=== PATIENT | female | born 1950 | race Caucasian/White ===

== ENCOUNTER 2016-09-10 13:41 | Emergency (ER) | payer MEDICARE ==
[2016-09-10 13:58] VITALS: BP 132/74
--- NOTE | 2016-09-10 14:58 | UC ---
UC General HPI - HPI Summary HPI Summary: complaint of wasp sting on her left hand that occurred 48 hours ago pain and swelling in hand that has increased took some benadryl and use soda paste on her hand without relief today redness and swelling has moved into her wrist denies fever and chills unsure of when her last tetanus immunization is - History of Current Complaint Chief Complaint: UCSkin Stated Complaint: BUG BITE Time Seen by Provider: 09/10/16 14:57 Hx Obtained From: Patient - Allergy/Home Medications Allergies/Adverse Reactions: Allergies Allergy/AdvReac Type Severity Reaction Status Date / Time Azithromycin [From Zithromax] Allergy Hives Verified 09/10/16 13:58 Levofloxacin [From Levaquin] Allergy Hives Verified 09/10/16 13:58 Penicillins Allergy Hives Verified 09/10/16 13:58 Home Medications: Home Medications Ascorbic Acid TAB* [Vitamin C TAB*] 500 mg PO DAILY 09/10/16 [History Confirmed 09/10/16] Cholecalciferol [Vitamin D] 1,000 units PO DAILY 09/10/16 [History Confirmed 07/23] Cranberry (Vaccinium Macrocarp [Cranberry] 500 mg PO DAILY 09/10/16 [History Confirmed 09/10/16] Rosuvastatin Calcium [Crestor] 20 mg PO DAILY 09/10/16 [History Confirmed ] PMH/Surg Hx/FS Hx/Imm Hx Previously Healthy: Yes Endocrine History: Dyslipidemia GI/ History: Gastroesophageal Reflux - Surgical History Surgical History: Yes Surgery Procedure, Year, and Place: T &A. Left breast biopsy - Family History Known Family History: Negative: Cardiac Disease, Hypertension, Diabetes - Social History Occupation: Employed Full-time Lives: With Family Alcohol Use: Daily Alcohol Amount: 2 glassesof wine daily Substance Use Type: None Smoking Status (MU): Never Smoked Tobacco Have You Smoked in the Last Year: No Review of Systems Constitutional: Negative Skin: Rash Eyes: Negative ENT: Negative Respiratory: Negative Cardiovascular: Negative Gastrointestinal: Negative Genitourinary: Negative Motor: Negative Neurovascular: Negative Musculoskeletal: Negative Neurological: Negative Psychological: Negative All Other Systems Reviewed And Are Negative: Yes Physical Exam Triage Information Reviewed: Yes Appearance: No Pain Distress, Well-Nourished Vital Signs: Initial Vital Signs Temp 98.8 F 09/10/16 13:54 Pulse 88 09/10/16 13:54 Resp 19 09/10/16 13:54 BP 132/74 09/10/16 13:54 Pulse Ox 100 09/10/16 13:54 Vital Signs Reviewed: Yes Eyes: Positive: Conjunctiva Clear ENT: Positive: Pharynx normal, TMs normal Neck: Positive: No Lymphadenopathy Respiratory: Positive: Lungs clear, Normal breath sounds, No respiratory distress, No accessory muscle use Cardiovascular: Positive: RRR, No Murmur, Pulses Normal, Brisk Capillary Refill Abdomen Description: Positive: Nontender, Soft Bowel Sounds: Positive: Present Musculoskeletal: Positive: No Edema Neurological: Positive: Alert Psychological Exam: Normal Skin: Positive: Other - left hand - area of edema and erythemaon back of hand that extends into her wrist Course/Dx - Course Course Of Treatment: will treat for cellulitis and update tetanus- pt has taken kelfex in the past so will rx again - Differential Dx - Multi-Symptom Provider Diagnoses: left hand cellulitis- insect bite Discharge - Discharge Plan Condition: Stable Disposition: HOME Prescriptions: Cephalexin CAP* [Keflex CAP*] 500 mg PO QID #28 cap Patient Education Materials: Cellulitis (ED) Referrals: No Primary Care Phys,NOPCP [Primary Care Provider] - [facility] [place] [facility] REFERRAL [Outside] Additional Instructions: CELLULITIS What is Cellulitis? Cellulitis is a bacterial infection of the skin and, sometimes, of the tissues beneath the skin. The skin normally has many types of bacteria on it, but intact skin is an effective barrier that keeps bacteria from entering and growing within the body. When there is a break in the skin, bacteria can enter the body and grow there, causing infection. The infection usually affects outer layers of the skin first, and then spreads deeper into body tissues. Cellulitis can affect any area of the body covered by skin, but it is most common on the face or lower part of the legs. Symptoms Might Include: Skin redness that increases in size as the infection spreads Tight, glossy, "stretched" appearance of the skin Pain or tenderness of the area The affected area may be warm or hot to the touch A thin red line (along a vein) from the cellulitis toward the heart Fever Chills, shaking Muscle aches pains Joint stiffness because of swelling around a joint Treatment Recommendations: The healthcare provider may have prescribed an antibiotic medicine. The medicine should be taken until it is completely gone, even if you are feeling better. If you stop taking the medicine early, the infection may not be completely gone, and the medication may not work the next time. If the infection is on your arm or leg, keep it elevated. You may use warm, wet compresses to relieve the pain and help healing. Soak a clean cloth in warm water, wring it out a little, and apply it to the affected site. Leave the soak in place for 15 minutes and repeat often throughout the day. Rest until the fever is gone and the pain and redness have lessened. You may take ibuprofen (Motrin, Advil), or acetaminophen (Tylenol) for pain. These will help ease some of the symptoms but will not cure the infection. Call Your Doctor or Return Here IF: Your fever does not go down with treatment, or it increases to more than 101 F. You are not starting to get better with the treatment within 24 to 36 hours. You have increasing pain, swelling, or chills. You feel drowsy and lethargic, or you have vomiting or diarrhea. You find the redness is spreading or there are red streaks coming from the infected area. The joint or bone under the infected skin becomes painful after the skin has started to heal. You have any new symptoms that worry you.
[2016-09-10] MEDS ORDERED: Tetan/Diph/Pertus SYR(Tdap)* 0.5 ML SYR(BOOSTRIX) use SYR IM ONE (15:05)
== END 2016-09-10 15:22 | disposition home or self-care (01) ==
LOC: UCEAST 13:41
DX: S60.562A Insect bite (nonvenomous) of left hand, initial encounter (principal); L03.114 Cellulitis of left upper limb; Z23 Encounter for immunization
CPT/HCPCS: 90471; 90715; 99212; G0463

== ENCOUNTER 2016-10-10 08:06 | Emergency (ER) | payer MEDICARE ==
--- NOTE | 2016-10-10 10:01 | UC ---
Naeem Nair Benjamin, scribed for Tanika Coronel MD on 10/10/16 at 0910 . Skin Complaint HPI - HPI Summary HPI Summary: 66 yo female c/o sting with wasp to L cheek Thursday. Has been taking benadryl , last dose last night. No sob / cp / palpitations. No fever / chills. She is concerned that she just recently (early September) was stung by a yellow jacket. Developed secondary cellulitis at the time, took cephalexin, which helped. - History of Current Complaint Chief Complaint: UCSkin Stated Complaint: WASP STING-JUST RED AND SORE Hx Obtained From: Patient - Allergy/Home Medications Allergies/Adverse Reactions: Allergies Allergy/AdvReac Type Severity Reaction Status Date / Time Azithromycin [From Zithromax] Allergy Hives Verified 10/10/16 08:22 Levofloxacin [From Levaquin] Allergy Hives Verified 10/10/16 08:22 Penicillins Allergy Hives Verified 10/10/16 08:22 Home Medications: Home Medications diPHENhydraMINE PO* [Benadryl PO 25 MG TAB*] 1 tab PO 10/10/16 [History] Review of Systems Constitutional: Other - SEE HPI Skin: Rash Eyes: Negative ENT: Negative Respiratory: Negative Cardiovascular: Negative Gastrointestinal: Negative Genitourinary: Negative Motor: Negative Neurovascular: Negative Musculoskeletal: Negative Neurological: Negative Psychological: Negative All Other Systems Reviewed And Are Negative: Yes PMH/Surg Hx/FS Hx/Imm Hx Previously Healthy: Yes - but see hpi. + allergic hx Cardiovascular History: Hypertension - Surgical History Surgical History: Yes Surgery Procedure, Year, and Place: T & A. Left breast biopsy - Family History Known Family History: Negative: Cardiac Disease, Hypertension, Diabetes - Social History Occupation: Employed Full-time Lives: With Family Alcohol Use: Daily Alcohol Amount: 2 glasses of wine daily Substance Use Type: None Smoking Status (MU): Never Smoked Tobacco Have You Smoked in the Last Year: No Physical Exam Triage Information Reviewed: Yes Appearance: Well-Nourished Vital Signs: Initial Vital Signs Temp 98.4 F 10/10/16 08:23 Pulse 72 10/10/16 08:23 Resp 16 10/10/16 08:23 BP 114/73 10/10/16 08:23 Pulse Ox 100 10/10/16 08:23 Vital Signs Reviewed: Yes Eye Exam: Normal ENT Exam: Other - L cheek with redness, swelling approx 5 x 6 cm. No loretta purulence, no stinger noted. Oropharynx o/w benign. Neck exam: Normal Respiratory Exam: Normal Respiratory: Positive: Normal breath sounds - No tachypnea, no dyspnea, No respiratory distress Cardiovascular Exam: Normal Cardiovascular: Positive: RRR, Pulses Normal, Brisk Capillary Refill Abdomen Description: Positive: Nontender, No Organomegaly, Soft Bowel Sounds: Positive: Present Musculoskeletal Exam: Normal Neurological Exam: Normal Psychological Exam: Normal Skin Exam: Normal Skin: Negative: rashes Course/Dx - Course Course Of Treatment: Reviewed pt's medications list and allergies. Blood pressure noted. Being tx'd. Will f/u with PCP in upon her return home. Plans to f/u with signal manager in December will call for report. Rx prednisone taper, cont benadryl (d/w pt). Rx cephalexin, if worse redness or fever. Ms. Garcia seems pleased with coa / tx plan. Questions answered to the best of my ability. - Diagnoses Provider Diagnoses: Hymenoptera sting Discharge - Discharge Plan Condition: Stable Disposition: HOME Prescriptions: Cephalexin CAP* [Keflex 500 CAP*] 500 mg PO TID #21 cap predniSONE TAB* [Deltasone TAB*] 10 mg PO DAILY #20 tab Patient Education Materials: Insect Bite or Sting (ED) Referrals: No Primary Care Phys,NOPCP [Primary Care Provider] - Additional Instructions: Please follow up with your primary care provider upon your return home. Seek medical attention for worse or new problems in the meantime. The documentation as recorded by the Naeem ace Benjamin accurately reflects the service I personally performed and the decisions made by me, Tanika Coronel MD.
[2016-10-10 10:22] VITALS: BP 128/86
== END 2016-10-10 10:17 | disposition home or self-care (01) ==
LOC: UCEAST 08:06
DX: T63.441A Toxic effect of venom of bees, accidental (unintentional), initial encounter (principal); Y92.9 Unspecified place or not applicable; I10 Essential (primary) hypertension; Z88.1 Allergy status to other antibiotic agents
CPT/HCPCS: 99212; G0463

== ENCOUNTER 2016-11-18 08:21 | Emergency (ER) | payer MEDICARE ==
[2016-11-18] MEDS ORDERED: Ondansetron ODT TAB* 4 MG PO ONE (08:50)
[2016-11-18] MEDS ORDERED: Ketorolac INJ* 30 MG/ML 1 ML VIAL IV ONE (08:50)
[2016-11-18] MEDS ORDERED: NS 0.9% 1000 ML* 1,000 ML IV ONE (08:50)
[2016-11-18] MEDS ORDERED: Morphine INJ* 4 MG/ML 1 ML CARPUJECT IV ONE (08:50)
[2016-11-18 09:15] LABS: Hematocrit 39 % (35-47); Hemoglobin 12.8 g/dl (12.0-16.0); Mean Corpuscular HGB Conc 33 g/dl (31-36); Mean Corpuscular Hemoglobin 31 pg (27-31); Mean Corpuscular Volume 92 fL (80-97); Mean Platelet Volume 8 um3 (7.4-10.4); Red Blood Count 4.18 10^6/ul (4.0-5.4); Red Cell Distribution Width 14 % (10.5-15); White Blood Count 9.1 10^3/ul (3.5-10.8)
[2016-11-18 09:28] LABS: Albumin 4.1 g/dL (3.2-5.2); BUN/Creatinine Ratio 16.7 (8-20); Calcium 9.3 mg/dL (8.6-10.3); EGFR African American 94.5 (>60); EGFR Non-African American 73.4 (>60); Globulin 2.5 g/dL (2-4); Potassium 3.5 mmol/L (3.5-5.0); Total Bilirubin 0.6 mg/dL (0.2-1.0); Total Protein 6.6 g/dL (6.4-8.9)
--- NOTE | 2016-11-18 09:38 | RAD ---
Indication: Headaches, sinus congestion. CT of the brain was performed without IV contrast. Ventricular structures are midline. No midline shift is noted. The extra-axial spaces are unremarkable. There is no evidence of intracranial mass or hemorrhage. Prominent Virchow Aris space is noted in the right basal ganglia. No intracranial mass or hemorrhage is noted. Is noted in the right basal ganglia. Mastoid air cells are well aerated. There may be some ethmoid mucosal thickening noted. IMPRESSION: Likely prominent Virchow Aris space is noted in the right basal ganglia. No intracranial mass or hemorrhage is noted.
[2016-11-18] MEDS ORDERED: Ondansetron INJ* 2 MG/ML VIAL ONE (09:41)
[2016-11-18] MEDS ORDERED: Ondansetron INJ* 2 MG/ML VIAL IV ONE (09:41)
[2016-11-18 10:09] LABS: Erythrocyte Sed Rate 22 mm/Hr (0-40)
[2016-11-18 10:45] LABS: Urine Bacteria Absent (Absent); Urine Bilirubin Negative (Negative); Urine Glucose Negative (Negative); Urine Nitrite Negative (Negative)
[2016-11-18 11:25] VITALS: BP 123/83
--- NOTE | 2016-11-18 14:47 | ED ---
Alayna Nair Nilda, scribed for Iban Citnron MD on 11/18/16 at 0850 . Neck Pain - HPI Summary HPI Summary: Pt is a 66 y/o F who presents to ED c/o neck pain. Pain began last night and is currently moderate, ranked 7/10 and characterized as stiffness. Additionally c/ o fever (beginning last night), post nasal drip, clear rhinorrhea, nasal congestion, L-sided dental pain and mild sore throat. Symptoms began 5 days ago as the sore throat, which has improved since onset. Has been taking Tylenol and Sudafed for the last 24 hours. Sx aggravated by nothing, alleviated by medications. Denies vomiting, photophobia, rash and myalgias. PMHx sinus infections - last one was 2 years ago and typically without fever. Reports that she lives in the [facility] and has been doing a lot of gardening recently. Allergies to Azithromycin, Levofloxacin and Penicillins. - History of Current Complaint Chief Complaint: EDFever Stated Complaint: FEVER Time Seen by Provider: 11/18/16 08:38 Hx Obtained From: Patient Onset/Duration: Still Present Severity Currently: Moderate Pain Intensity: 7 Pain Scale Used: 0-10 Numeric Location: Discrete At: - Neck Character: Stiff Aggravating Factors: Nothing Alleviating Factors: OTC Meds - Tylenol and Sudafed Associated Signs & Symptoms: Positive: Fever - Allergies/Home Medications Allergies/Adverse Reactions: Allergies Allergy/AdvReac Type Severity Reaction Status Date / Time Azithromycin [From Zithromax] Allergy Hives Verified 11/18/16 08:34 Levofloxacin [From Levaquin] Allergy Hives Verified 11/18/16 08:34 Penicillins Allergy Hives Verified 11/18/16 08:34 PMH/Surg Hx/FS Hx/Imm Hx Endocrine/Hematology History: Denies: Hx Diabetes Cardiovascular History: Reports: Hx Hypercholesterolemia, Hx Hypertension GI History: Reports: Hx Gastroesophageal Reflux Disease - Surgical History Surgery Procedure, Year, and Place: T & A. Left breast biopsy Infectious Disease History: No Infectious Disease History: Denies: Hx Clostridium Difficile, Hx Hepatitis, Hx Human Immunodeficiency Virus (HIV), Hx of Known/Suspected MRSA, Hx Shingles, Hx Tuberculosis, Hx Known/ Suspected VRE, Hx Known/Suspected VRSA, History Other Infectious Disease, Traveled Outside the [place] in Last 30 Days - Family History Known Family History: Negative: Cardiac Disease, Hypertension, Diabetes - Social History Alcohol Use: Daily Alcohol Amount: 2 glasses of wine daily Substance Use Type: Reports: None Smoking Status (MU): Never Smoked Tobacco Have You Smoked in the Last Year: No Review of Systems Positive: Fever Negative: Photophobia Positive: Dental Pain - L-sided, Sore Throat - mild, Nasal Discharge, Other - Post-nasal drip, nasal congestion Negative: Vomiting Positive: Other - Neck pain. Negative: Myalgia Negative: Rash All Other Systems Reviewed And Are Negative: Yes Physical Exam - Summary Physical Exam Summary: The patient is well-nourished in no acute distress and in no acute pain. The skin is warm and dry and skin color reflects adequate perfusion. She has good skin turgor. HEENT: The head is normocephalic and atraumatic. The pupils are equal and reactive. The conjunctivae are clear and without drainage. Nares have boggy turbinates and rhinorrhea. Mouth reveals moist mucous membranes and the throat is erythematous without exudate. There is some post nasal drip in the back of the throat. The external ears are intact. The ear canals are patent and without drainage. The tympanic membranes are intact. Tenderness to percussion over the frontal sinuses. Neck is supple with full range of motion and non-tender. There are no carotid bruits. There is no nuchal rigidity. Respiratory: Chest is non-tender. Lungs are clear to auscultation and breath sounds are symmetrical and equal. Cardiovascular: Hear is regular rate and rhythm. There is no murmur or rub auscultated. There is no peripheral edema and pulses are symmetrical and equal. Abdomen: The abdomen is soft and non-tender. There are normal bowel sounds heard in all four quadrants and there is no organomegaly palpated. Musculoskeletal: There is no back pain noted. Extremities are non-tender with full range of motion. There is good capillary refill. There is no peripheral edema or calf tenderness elicited. Neurological: Patient is alert and oriented to person, place and time. The patient has symmetrical motor strength in all four extremities. Psychiatric: The patient has an appropriate affect and does not exhibit any anxiety or depression. Triage Information Reviewed: Yes Vital Signs On Initial Exam: Initial Vitals Temp Pulse Resp BP Pulse Ox 98.8 F 105 17 128/89 98 11/18/16 08:25 11/18/16 08:25 11/18/16 08:25 11/18/16 08:25 11/18/16 08:25 Vital Signs Reviewed: Yes - Cade Coma Scale Best Eye Response: 4 - Spontaneous Best Motor Response: 6 - Obeys Commands Best Verbal Response: 5 - Oriented Coma Scale Total: 15 Diagnostics - Vital Signs Vital Signs Temp Pulse Resp BP Pulse Ox 11/18/16 08:32 98 99 11/18/16 08:31 133/89 11/18/16 08:25 98.8 F 105 17 128/89 98 - Laboratory Lab Results: Lab Results 11/18/16 11/18/16 11/18/16 Range/Units 09:00 09:00 09:00 WBC 9.1 (3.5-10.8) 10^3/ul RBC 4.18 (4.0-5.4) 10^6/ul Hgb 12.8 (12.0-16.0) g/dl Hct 39 (35-47) % MCV 92 (80-97) fL MCH 31 (27-31) pg MCHC 33 (31-36) g/dl RDW 14 (10.5-15) % Plt Count 226 (150-450) 10^3/ul MPV 8 (7.4-10.4) um3 Neut % (Auto) 78.8 (38-83) % Lymph % (Auto) 11.9 L (25-47) % [place] % (Auto) 6.3 (1-9) % Eos % (Auto) 1.9 (0-6) % Baso % (Auto) 1.1 (0-2) % Absolute Neuts (auto) 7.2 (1.5-7.7) 10^3/ul Absolute Lymphs (auto) 1.1 (1.0-4.8) 10^3/ul Absolute Monos (auto) 0.6 (0-0.8) 10^3/ul Absolute Eos (auto) 0.2 (0-0.6) 10^3/ul Absolute Basos (auto) 0.1 (0-0.2) 10^3/ul Absolute Nucleated RBC 0 10^3/ul Nucleated RBC % 0 ESR 22 (0-40) mm/Hr Sodium 140 (133-145) mmol/L Potassium 3.5 (3.5-5.0) mmol/L Chloride 107 (101-111) mmol/L Carbon Dioxide 28 (22-32) mmol/L Anion Gap 5 (2-11) mmol/L BUN 13 (6-24) mg/dL Creatinine 0.78 (0.51-0.95) mg/dL Est GFR ( Amer) 94.5 (>60) Est GFR (Non-Af Amer) 73.4 (>60) BUN/Creatinine Ratio 16.7 (8-20) Glucose 108 H (70-100) mg/dL Lactic Acid 0.9 (0.5-2.0) mmol/L Calcium 9.3 (8.6-10.3) mg/dL Total Bilirubin 0.60 (0.2-1.0) mg/dL AST 22 (13-39) U/L ALT 21 (7-52) U/L Alkaline Phosphatase 62 (34-104) U/L Total Protein 6.6 (6.4-8.9) g/dL Albumin 4.1 (3.2-5.2) g/dL Globulin 2.5 (2-4) g/dL Albumin/Globulin Ratio 1.6 (1-3) Urine Color Urine Appearance Urine pH (5-9) Ur Specific [place] (1.010-1.030) Urine Protein (Negative) Urine Ketones (Negative) Urine Blood (Negative) Urine Nitrate (Negative) Urine Bilirubin (Negative) Urine Urobilinogen (Negative) Ur Leukocyte Esterase (Negative) Urine WBC (Auto) (Absent) Urine RBC (Auto) (Absent) Ur Squamous Epith Cells (Absent) Urine Bacteria (Absent) Urine Glucose (Negative) 11/18/16 Range/Units 10:13 WBC (3.5-10.8) 10^3/ul RBC (4.0-5.4) 10^6/ul Hgb (12.0-16.0) g/dl Hct (35-47) % MCV (80-97) fL MCH (27-31) pg MCHC (31-36) g/dl RDW (10.5-15) % Plt Count (150-450) 10^3/ul MPV (7.4-10.4) um3 Neut % (Auto) (38-83) % Lymph % (Auto) (25-47) % [place] % (Auto) (1-9) % Eos % (Auto) (0-6) % Baso % (Auto) (0-2) % Absolute Neuts (auto) (1.5-7.7) 10^3/ul Absolute Lymphs (auto) (1.0-4.8) 10^3/ul Absolute Monos (auto) (0-0.8) 10^3/ul Absolute Eos (auto) (0-0.6) 10^3/ul Absolute Basos (auto) (0-0.2) 10^3/ul Absolute Nucleated RBC 10^3/ul Nucleated RBC % ESR (0-40) mm/Hr Sodium (133-145) mmol/L Potassium (3.5-5.0) mmol/L Chloride (101-111) mmol/L Carbon Dioxide (22-32) mmol/L Anion Gap (2-11) mmol/L BUN (6-24) mg/dL Creatinine (0.51-0.95) mg/dL Est GFR ( Amer) (>60) Est GFR (Non-Af Amer) (>60) BUN/Creatinine Ratio (8-20) Glucose (70-100) mg/dL Lactic Acid (0.5-2.0) mmol/L Calcium (8.6-10.3) mg/dL Total Bilirubin (0.2-1.0) mg/dL AST (13-39) U/L ALT (7-52) U/L Alkaline Phosphatase (34-104) U/L Total Protein (6.4-8.9) g/dL Albumin (3.2-5.2) g/dL Globulin (2-4) g/dL Albumin/Globulin Ratio (1-3) Urine Color Straw Urine Appearance Clear Urine pH 7.0 (5-9) Ur Specific [place] 1.011 (1.010-1.030) Urine Protein Negative (Negative) Urine Ketones Negative (Negative) Urine Blood 1+ H (Negative) Urine Nitrate Negative (Negative) Urine Bilirubin Negative (Negative) Urine Urobilinogen Negative (Negative) Ur Leukocyte Esterase Trace H (Negative) Urine WBC (Auto) Trace(0-5/hpf) (Absent) Urine RBC (Auto) 1+(3-5/hpf) H (Absent) Ur Squamous Epith Cells Present H (Absent) Urine Bacteria Absent (Absent) Urine Glucose Negative (Negative) Result Diagrams: 11/18/16 09:00 11/18/16 09:00 Lab Statement: Any lab studies that have been ordered have been reviewed, and results considered in the medical decision making process. - CT Brain CT CT Interpretation Completed By: Radiologist - Likely prominent Virchow Aris space is noted in the right basal ganglia. No intracranial mass or hemorrhage is noted. ED physician reviewed this radiology report and agrees. Re-Evaluation - Re-Evaluation First Eval Re-Evaluation Time: 10:46 Change: Improved Neck Course/Dx - Course Assessment/Plan: Pt is a 66 y/o F who presents to ED c/o neck pain since last night, currently moderate, ranked 7/10 and characterized as stiffness. Additionally c/o fever (beginning last night), post nasal drip, clear rhinorrhea , nasal congestion, L-sided dental pain and mild sore throat. Symptoms began 5 days ago as the sore throat, which has improved since onset. Has been taking Tylenol and Sudafed for the last 24 hours. Sx alleviated by medications. Denies vomiting, photophobia, rash and myalgias. PMHx sinus infections - last one was 2 years ago and typically without fever. Reports that she lives in the [facility] and has been doing a lot of gardening recently. Allergies to Azithromycin, Levofloxacin and Penicillins. Brain CT reveals a likely prominent Virchow Aris space is noted in the right basal ganglia. Blood work and UA were done. Pt will be D/C to home with Dx of acute sinusitis, Rx for Clindamycin and a follow up with her PCP. She understands and agrees. Elevated BP noted and advised to f/u with PCP. - Diagnoses Differential Dx/HQI/PQRI: Positive: Other - viral syndrome, virchow aris space Provider Diagnoses: Acute ethmoidal sinusitis Discharge - Discharge Plan Condition: Stable Disposition: HOME Prescriptions: Clindamycin Cap(NF) [Clindamycin Cap 300 mg Cap(NF)] 300 mg PO Q6H #40 cap Patient Education Materials: Sinusitis (ED) Referrals: Non Staff,Doctor [Primary Care Provider] - Additional Instructions: Consider outpatient MRI. The documentation as recorded by the Alayna ace Nilda accurately reflects the service I personally performed and the decisions made by me, Iban Cintron MD.
== END 2016-11-18 11:20 | disposition home or self-care (01) ==
LOC: ED 08:21
DX: J01.20 Acute ethmoidal sinusitis, unspecified (principal); M54.2 Cervicalgia; K08.89 Other specified disorders of teeth and supporting structures; J02.9 Acute pharyngitis, unspecified
CPT/HCPCS: 36415; 70450; 80053; 81003; 81015; 83605; 85025; 85652; 86618; 87086; 96374; 96375; 99284; J1885; J2270; J2405

== ENCOUNTER 2016-11-23 08:05 | Emergency (ER) | payer MEDICARE ==
[2016-11-23 08:22] VITALS: BP 119/88
--- NOTE | 2016-11-23 08:36 | UC ---
Respiratory Complaint HPI - HPI Summary HPI Summary: 66 yo female seen in ER about a week ago with fever and KHALIL Started on clindamycin for ethmoid sinusitis has continued nasal d/c and post nasal drip KHALIL better Now has right sided CP that started yesterday no cough or SOB states this is how she felt when she had pneumonia - History of Current Complaint Chief Complaint: UCRespiratory Stated Complaint: CHEST CONGESTION Time Seen by Provider: 11/23/16 08:27 Hx Obtained From: Patient Onset/Duration: Gradual Onset, Lasting Days Timing: Constant Severity Initially: Severe Severity Currently: Mild Pain Intensity: 4 Pain Scale Used: 0-10 Numeric Alleviating Factors: OTC Meds Associated Signs And Symptoms: Positive: Fever - none since starting antibiotic - Allergies/Home Medications Allergies/Adverse Reactions: Allergies Allergy/AdvReac Type Severity Reaction Status Date / Time Azithromycin [From Zithromax] Allergy Hives Verified 11/23/16 08:22 Levofloxacin [From Levaquin] Allergy Hives Verified 11/23/16 08:22 Penicillins Allergy Hives Verified 11/23/16 08:22 PMH/Surg Hx/FS Hx/Imm Hx Previously Healthy: Yes Endocrine History: Dyslipidemia Respiratory History: Pneumonia - Surgical History Surgical History: Yes Surgery Procedure, Year, and Place: T & A. Left breast biopsy - Family History Known Family History: Negative: Cardiac Disease, Hypertension, Diabetes - Social History Alcohol Use: Daily Alcohol Amount: 2 glasses of wine daily Substance Use Type: None Smoking Status (MU): Never Smoked Tobacco Have You Smoked in the Last Year: No Review of Systems Constitutional: Fever - resolved Skin: Negative Eyes: Negative ENT: Nasal Discharge, Sinus Congestion, Sinus Pain/Tenderness Respiratory: Cough Cardiovascular: Chest Pain - right sided Gastrointestinal: Negative Genitourinary: Negative Motor: Negative Neurovascular: Negative Musculoskeletal: Negative Neurological: Negative Psychological: Negative Is Patient Immunocompromised?: No All Other Systems Reviewed And Are Negative: Yes Physical Exam Triage Information Reviewed: Yes Appearance: Well-Appearing, No Pain Distress, Well-Nourished Vital Signs: Initial Vital Signs Temp 96.7 F 11/23/16 08:17 Pulse 82 11/23/16 08:17 Resp 18 11/23/16 08:17 BP 119/88 11/23/16 08:17 Pulse Ox 99 11/23/16 08:17 Vital Signs Reviewed: Yes Eyes: Positive: Conjunctiva Clear ENT: Positive: Hearing grossly normal, Other: - bilateral max sinus tenderness. Negative: Nasal congestion, Nasal drainage, Trismus, Muffled/hoarse voice Neck: Positive: Supple, Nontender, No Lymphadenopathy Respiratory: Positive: Chest non-tender, Lungs clear, Normal breath sounds, No respiratory distress, No accessory muscle use Cardiovascular: Positive: RRR, No Murmur Musculoskeletal: Positive: ROM Intact, No Edema Neurological: Positive: Alert Psychological Exam: Normal Skin Exam: Normal Skin: Positive: Other UC Diagnostic Evaluation - Laboratory O2 Sat by Pulse Oximetry: 99 - normal/not hypoxic - Radiology Xray Interpretation: No Acute Changes - stigmata of COPD Radiology Interpretation Completed By: Radiologist Respiratory Course/Dx - Differential Dx/Diagnosis Provider Diagnoses: sinusitis (ethmoid). right sided chest pain of uncertain cause Discharge - Discharge Plan Condition: Stable Disposition: HOME Prescriptions: Cefuroxime Axetil [Ceftin 250 MG] 250 mg PO BID #14 tab Patient Education Materials: Sinusitis (ED) Referrals: Non Staff,Doctor [Primary Care Provider] - Additional Instructions: continue warm facial compresses and saline nasal spray RECHECK FOR WORSENING SYMPTOMS/SHORTNESS OR BREATH recheck in 4 days if not improved
--- NOTE | 2016-11-23 09:05 | RAD ---
INDICATION: Recent febrile illness now with RIGHT-sided chest pain. Chest congestion. Fever. COMPARISON: October 14, [address] TECHNIQUE: Dual energy PA and routine lateral views of the chest were obtained. REPORT: Elevated lung volumes and both diffuse mild prominence of the interstitial markings and patchy rarefaction of the mid to upper lung zone interstitial markings. No focal pulmonary lesion, compelling alveolar consolidation, pleural effusion, pneumothorax. The heart, pulmonary vasculature, and mediastinal contours are unremarkable. No fracture or suspicious osseous lesions evident. Thoracic degenerative spondylosis and slight RIGHT convex curve. IMPRESSION: Stigmata of probable obstructive lung disease. No acute pulmonary or cardiac process evident.
== END 2016-11-23 09:25 | disposition home or self-care (01) ==
LOC: UCEAST 08:05
DX: J32.2 Chronic ethmoidal sinusitis (principal); R07.89 Other chest pain; R50.9 Fever, unspecified; E78.5 Hyperlipidemia, unspecified; Z88.1 Allergy status to other antibiotic agents; Z88.0 Allergy status to penicillin
CPT/HCPCS: 71020; 99212; G0463

== ENCOUNTER 2018-07-20 10:55 | Emergency (ER) | payer MEDICARE, OTHER ==
--- NOTE | 2018-07-20 11:08 | UC ---
HPI Wound/Suture Re-check - HPI Summary HPI Summary: 67-year-old female presents for wound check and suture removal. States she had a skin biopsy performed by her balance wheel motion inspector in [place] 2 weeks ago. She has her spouse were traveling and would not be back in [place] for a while yet therefore came to urgent care for suture removal. Denies redness, swelling, pain, or wound drainage. - History Of Current Complaint Stated Complaint: SUTURE REMOVAL Time Seen by Provider: 07/20/18 11:02 Hx Obtained From: Patient - Allergies/Home Medications Allergies/Adverse Reactions: Allergies Allergy/AdvReac Type Severity Reaction Status Date / Time azithromycin [From Zithromax] Allergy Hives Verified 07/20/18 11:09 levofloxacin [From Levaquin] Allergy Hives Verified 07/20/18 11:09 Penicillins Allergy Hives Verified 07/20/18 11:09 Home Medications: Home Medications Pantoprazole Sodium [Protonix] 40 mg PO DAILY 07/20/18 [History Confirmed ] PMH/Surg Hx/FS Hx/Imm Hx Endocrine History: Dyslipidemia GI/ History: Gastroesophageal Reflux - Surgical History Surgical History: Yes Surgery Procedure, Year, and Place: T & A. Left breast biopsy - Family History Known Family History: Negative: Cardiac Disease, Hypertension, Diabetes - Social History Occupation: Works From/At Home Lives: With Family Alcohol Use: Daily Alcohol Amount: 2 glasses of wine daily Substance Use Type: None Smoking Status (MU): Never Smoked Tobacco Have You Smoked in the Last Year: No Review of Systems All Other Systems Reviewed And Are Negative: Yes Constitutional: Negative: Fever, Chills Skin: Positive: Other - see HPI Respiratory: Positive: Negative Cardiovascular: Positive: Negative Gastrointestinal: Positive: Negative Genitourinary: Positive: Negative Musculoskeletal: Positive: Negative Neurological: Positive: Negative Is Patient Immunocompromised?: No Physical Exam Triage Information Reviewed: Yes Appearance: Well-Appearing, No Pain Distress, Well-Nourished Vital Signs Reviewed: Yes Respiratory: Positive: Lungs clear, Normal breath sounds, No respiratory distress Cardiovascular: Positive: RRR, No Murmur, Pulses Normal, Brisk Capillary Refill Musculoskeletal Exam: Normal Neurological: Positive: Alert Skin: Positive: Significant Lesion(s) - Well healed biopsy site with 2 interrupted sutures intact to the left anterior thigh without erythema, edema, induration, fluctuance, or drainage. Course/Dx - Course Course Of Treatment: 67-year-old female presents for wound check and suture removal. States she had a skin biopsy performed by her balance wheel motion inspector in [place] 2 weeks ago. She has her spouse were traveling and would not be back in [place] for a while yet therefore came to urgent care for suture removal. Denies redness, swelling, pain, or wound drainage. She is afebrile. Vital signs stable. Exam revealed a well healed biopsy site with 2 interrupted sutures intact to the left anterior thigh without erythema, edema, induration, fluctuance, or drainage. The sutures were removed without complication. Patient is to follow-up with her balance wheel motion inspector as needed. Anticipatory guidance and warning symptoms were reviewed with the patient. Verbalizes understanding and agrees care. - Differential Dx - Laceration/Wound Differential Diagnoses: Healing Wound - Diagnosis Provider Diagnosis: S/P skin biopsy, Visit for suture removal Discharge - Sign-Out/Discharge Documenting (check all that apply): Patient Departure All imaging exams completed and their final reports reviewed: No Studies - Discharge Plan Condition: Stable Disposition: HOME Referrals: No Primary Care Phys,NOPCP [Primary Care Provider] - Additional Instructions: Your skin biopsy appears to be well healed without any evidence of infection. The sutures were removed without difficulty. Continue to keep the wound clean using a mild soap and water. Continue to monitor for any signs of infection including fever, chills, redness that spreads, swelling, or pus draining from the wound. Seek immediate medical attention should any of these occur. Follow up with your balance wheel motion inspector as needed. - Billing Disposition and Condition Condition: STABLE Disposition: Home
[2018-07-20 11:13] VITALS: BP 118/78
== END 2018-07-20 11:18 | disposition home or self-care (01) ==
LOC: UCEAST 10:55
DX: Z48.02 Encounter for removal of sutures (principal); K21.9 Gastro-esophageal reflux disease without esophagitis; Z79.899 Other long term (current) drug therapy; Z88.1 Allergy status to other antibiotic agents; Z88.0 Allergy status to penicillin; Z98.890 Other specified postprocedural states
CPT/HCPCS: 99211; G0463